=== PATIENT | male | born 1990 | race Two or more races ===

== ENCOUNTER 2021-03-09 12:57 | Emergency (ER) | payer SELFPAY ==
[~2021-03-09] VITALS: Ht 172.7 cm; Wt 88.1 kg
[2021-03-09] MEDS ORDERED: ONDANSETRON PF 4 MG/2 ML VIAL. IV ONE (13:45)
[2021-03-09] MEDS ORDERED: FAMOTIDINE 20 MG/2 ML VIAL IVP ONE (13:45)
[2021-03-09] MEDS ORDERED: IV NORMAL SALINE 1000ML BAG 1,000 ML IV ONE (13:45)
[2021-03-09 14:21] LABS: BASO % 0 % (0-3); EOS # 0.2 x10^3/uL (0.0-0.7); EOS % 2 % (0-3); HEMOGLOBIN 15.3 g/dL (13.0-17.5); LYMPH # 1.2 x10^3/uL (1.0-4.8); LYMPH % 11 % (24-48); MEAN CORPUSCULAR HEMOGLOBIN 30 pg (25-35); MEAN CORPUSCULAR HGB CONC 35 g/dL (31-37); MEAN CORPUSCULAR VOLUME 87 fL (79-100); MONO # 0.3 x10^3/uL (0.0-1.1); MONO % 3 % (0-9); NEUT # 8.5 x10^3/uL (1.8-7.7); NEUT % 84 % (31-73); PLATELET COUNT 259 x10^3/uL (140-400); RED BLOOD COUNT 5.05 x10^6/uL (4.30-5.70); RED CELL DISTRIBUTION WIDTH 13.2 % (11.5-14.5); WHITE BLOOD COUNT 10.1 x10^3/uL (4.0-11.0)
[2021-03-09 14:31] LABS: CALCIUM 8.8 mg/dL (8.5-10.1); CREATININE 1.1 mg/dL (0.7-1.3); GFR 78.6; POTASSIUM 3.8 mmol/L (3.5-5.1)
[2021-03-09] MEDS ORDERED: methylPREDNISolone SOD SUCC PF 125 MG/2 ML VIAL. IV ONE (14:45)
[2021-03-09] MEDS ORDERED: PROCHLORPERAZINE 10 MG/2 ML VIAL. IV ONE (14:45)
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
[2021-03-09 15:30] VITALS: BP 110/68
[2021-03-09] MEDS ORDERED: ONDA4TAB12 PO (15:51)
== END 2021-03-09 16:12 | disposition home or self-care (01) ==
LOC: ER 12:57
DX: R51.9 Headache, unspecified (principal); R11.2 Nausea with vomiting, unspecified; F10.20 Alcohol dependence, uncomplicated; Y90.9 Presence of alcohol in blood, level not specified
CPT/HCPCS: 36415; 80048; 85025; 96361; 96374; 96375; 99285; J0780; J2405; J2930; J3490; J7030